=== PATIENT | male | born 1980 | race Caucasian/White ===

== ENCOUNTER → 2017-12-26 | Outpatient (CLI) | payer OTHER ==
[~2017-12-26] MED LIST: ALLEGRA60 M1 PO; ZYRTEC 10MG10 MG PO
== END ==
LOC: COL.RAD 11:26
DX: G93.5 Compression of brain (principal)
CPT/HCPCS: Q9967

== ENCOUNTER → 2018-01-16 | Outpatient (CLI) | payer OTHER | LOC: COL.RAD 14:44 | DX: R55 Syncope and collapse (principal); R51 Headache | CPT/HCPCS: A9585 ==

== ENCOUNTER 2018-05-02 12:05 | Emergency (ER) | payer OTHER ==
[~2018-05-02] VITALS: Ht 182.9 cm; Wt 122.7 kg
[2018-05-02 12:11] VITALS: PULSE 73; TEMP 98.5
[2018-05-02 12:29] LABS: BASO # 0.1 (0.0-0.2); BASO % 0.6 % (0.0-2.0); EOS # 0.1 (0.0-0.7); EOS % 1.5 % (0-4.0); GRAN # 5.5 (1.4-6.5); GRAN % 64.2 % (42.2-75.2); HEMATOCRIT 45.4 % (42.0-52.0); HEMOGLOBIN 15.1 g/dl (13.5-18.0); LYMPH # 2.1 (1.2-3.4); LYMPH % 24.4 % (20.0-51.0); MEAN CELL VOLUME 89 fl (80.0-100.0); MEAN CORPUSCULAR HEMOGLOBIN 30 pg (27.0-31.0); MEAN CORPUSCULAR HGB CONC 33 g/dl (33.0-37.0); MEAN PLATELET VOLUME 10.5 fl (7.4-10.4); MONO # 0.8 (0.1-0.6); PLATELET COUNT 273 K/mm3 (130-400); RED BLOOD COUNT 5.08 M/mm3 (4.20-5.60); REDCELL DISTRIBUTION WIDTH-CV 12.8 % (11.5-14.5)
[2018-05-02 12:37] LABS: ALBUMIN 4.3 gm/dL (3.5-5.0); BILIRUBIN,TOTAL 0.3 mg/dL (0.0-1.0); CALCIUM 9.2 mg/dL (8.4-10.2); CREATININE, serum 0.97 mg/dL (0.66-1.25); POTASSIUM 4.3 mmol/L (3.4-5.0); TOTAL PROTEIN 7.5 gm/dL (6.4-8.2)
[2018-05-02 14:03] VITALS: BP 154/96
== END 2018-05-02 14:06 | disposition home or self-care (01) ==
LOC: COL.ER 12:05
PROVIDERS: Emergency Medicine
DX: R55 Syncope and collapse (principal)
CPT/HCPCS: J7030

== ENCOUNTER 2018-08-20 14:06 | Emergency (ER) | payer OTHER ==
[~2018-08-20] VITALS: Ht 182.9 cm; Wt 113.6 kg
[2018-08-20 14:10] VITALS: BP 127/82; TEMP 97.4
[2018-08-20] MEDS ORDERED: CEPHALEXIN500 M1 PO (18:48)
[2018-08-20 18:59] VITALS: PULSE 95
== END 2018-08-20 18:59 | disposition home or self-care (01) ==
LOC: COL.ER 14:06
DX: S61.214A Laceration without foreign body of right ring finger without damage to nail, initial encounter (principal); Z23 Encounter for immunization; W26.8XXA Contact with other sharp object(s), not elsewhere classified, initial encounter; Y92.009 Unspecified place in unspecified non-institutional (private) residence as the place of occurrence of the external cause

== ENCOUNTER 2022-10-28 10:30 | Outpatient (RCR) | payer BC ==
[~2022-10-28 10:30] MED LIST changes: +CEPHALEXIN500 M1 PO
== END 2022-11-13 | disposition home or self-care (01) ==
LOC: WSPT
DX: H81.90 Unspecified disorder of vestibular function, unspecified ear (principal)